=== PATIENT | female | born 1970 | race American Indian/Alaskan Native ===

== ENCOUNTER 2016-07-15 08:07 | Outpatient (CLI) | payer OTHER ==
--- NOTE | 2016-07-15 14:03 | Ultrasound Report ---
TRANSABDOMINAL AND TRANSVAGINAL PELVIC ULTRASOUND: 07/15/16 08:07:00 CLINICAL: Uterine enlargement. FINDINGS: Transabdominal and transvaginal pelvic ultrasound demonstrated an enlarged uterus measuring at least 19.1 x 8.2 x 12.4 cm. The largest uterine fibroid is located; lower uterine segment and measures approximately 10.8 x 9.9 and 9.6 cm. This fibroid limits the imaging of the uterus on the endovaginal exam. An anterior fundal intramural fibroid measures 5.6 x 5.5 x 6.2 cm in a posterior fundal intramural fibroid measures 4.1 x 3.8 x 4.1 cm.The endometrium is normal and measures 7.3 AP thickness. Ovaries were not identified. No adnexal mass. No free fluid. Normal urinary bladder. IMPRESSION: An enlarged fibroid uterus with a 10.8 cm dominant lower uterine segment fibroid. This exam may underestimate the size and number of fibroids. Consider CT or MRI for better estimation of uterine size and the number and size of fibroids.
--- NOTE | 2016-07-16 08:33 | Mammography Report ---
BILATERAL DIGITAL SCREENING MAMMOGRAM with CAD: 07/15/16 08:07:00 CLINICAL: Routine screening. COMPARISON:04/18/15 FINDINGS: The breasts are heterogeneously dense, which may obscure small masses. No mass, architectural distortion or suspicious calcifications. IMPRESSION: No mammographic evidence of malignancy. BI-RADS CATEGORY: 1 - - Negative RECOMMENDATION: Routine mammographic screening in one year. COMMENT: Patient follow-up letters are generated by our [employer] application.
== END 2016-07-15 08:08 | disposition home or self-care (01) ==
LOC: SPVWC 08:07
PROVIDERS: ATTEND Internal Medicine
DX: Z12.31 Encounter for screening mammogram for malignant neoplasm of breast (principal); D25.9 Leiomyoma of uterus, unspecified; N85.2 Hypertrophy of uterus
CPT/HCPCS: 76830; 76856; G0202; 77067

== ENCOUNTER 2017-11-12 08:52 | Outpatient (CLI) | payer OTHER ==
--- NOTE | 2017-11-12 16:32 | Mammography Report ---
BILATERAL DIGITAL SCREENING MAMMOGRAM : 11/12/17 08:52:00 CLINICAL: Routine screening. COMPARISON:07/15/16 FINDINGS: The breasts are heterogeneously dense, which may obscure small masses. No mass, architectural distortion or suspicious calcifications. IMPRESSION: No mammographic evidence of malignancy. BI-RADS CATEGORY: 1 - - Negative RECOMMENDATION: Routine mammographic screening in one year. COMMENT: CAD was not utilized for this exam. Patient follow-up letters are generated by our [employer] application.
== END 2017-11-12 08:53 | disposition home or self-care (01) ==
LOC: SPVWC 08:52
PROVIDERS: ATTEND Family Medicine
DX: Z12.31 Encounter for screening mammogram for malignant neoplasm of breast (principal)
CPT/HCPCS: 77067

== ENCOUNTER 2021-05-21 08:38 | Outpatient (CLI) | payer OTHER ==
--- NOTE | 2021-05-21 10:41 | Mammography Report ---
DIGITAL SCREENING MAMMOGRAM WITH CAD, 05/21/2021 CLINICAL INFORMATION / INDICATION: Routine screening mammography. TECHNIQUE: Digital bilateral 2D mammography was obtained in the craniocaudal and mediolateral obliqu e projections. This examination was interpreted with the benefit of Computer-Aided Detection analysis . COMPARISON: Prior mammogram 11/12/2017 FINDINGS: Breast Density: The breasts are heterogeneously dense, which may obscure small masses. No dominant mass, suspicious calcifications, or architectural distortion in either breast. There has been no significant change compared with the prior examination. IMPRESSION: No mammographic evidence of malignancy. Follow up recommendation: Routine yearly BI-RADS Category 1: NEGATIVE A "normal" or negative report should not discourage follow up or biopsy of a clinically significant f inding. A written summary of these findings will be mailed to the patient. The patient will be entered into a mammography reporting system which will generate a reminder letter for the patient's next appointmen t at the appropriate interval. [employer] recommends yearly mammograms starting at age 40 and continuing as l shekhar as a woman is in good health. Breast MRI is recommended for women with an approximate 20-25% or greater lifetime risk of breast cancer, including women with a strong family history of breast or ova itzel cancer or who have been treated for Hodgkin's disease. Signer Name: Jolynn Saenz MD Signed: 05/21/2021 10:36 AM Workstation Name: [id number]
== END 2021-05-21 08:39 | disposition home or self-care (01) ==
LOC: SPVWC 08:38
PROVIDERS: ATTEND Family Medicine
DX: Z12.31 Encounter for screening mammogram for malignant neoplasm of breast (principal); N64.89 Other specified disorders of breast
CPT/HCPCS: 77067